=== PATIENT | female | born 1930 | race Asian ===

== ENCOUNTER 2018-05-17 15:58 | Emergency (ER) | payer SELFPAY ==
[~2018-05-17] VITALS: Ht 162.6 cm; Wt 60.0 kg
[2018-05-17 16:58] VITALS: BP 119/74
== END 2018-05-17 18:17 | disposition left against medical advice (07) ==
LOC: ER 15:58
DX: R51 Headache (principal); Z53.21 Procedure and treatment not carried out due to patient leaving prior to being seen by health care provider